=== PATIENT | male | born 1985 | race Caucasian/White ===

== ENCOUNTER 2020-12-16 19:56 | Emergency (ER) | payer MEDICAID ==
--- NOTE | 2020-12-16 21:19 | EDM.PDOC ---
ED HPI GENERAL MEDICAL PROBLEM - General Chief Complaint: Laceration Stated Complaint: SCREW IN LT FOOT Time Seen by Provider: 12/16/20 21:06 Source of Information: Reports: Patient History Limitations: Reports: No Limitations - History of Present Illness INITIAL COMMENTS - FREE TEXT/NARRATIVE: Aurelio is a 35-year-old male presenting to the ED with concerns that he has a screw in his left foot. Patient states that "he has had 3 shoulder surgeries and that the screw of his shoulder surgery fell out and was in the arch of his foot. He has been walking quite a bit and now the screw has moved to the ball between the second and third metatarsals is in pain and swelling. He has been walking some distance and the pain continues to worsen." I was asked to see the patient after he fired Carleen Horne CNP because he felt that she was not competent. Past Medical History HEENT History: Reports: Impaired Vision, Other (See Below) Other HEENT History: suppose to wear glasses Neurological History: Reports: Concussion, Head Trauma - Infectious Disease History Infectious Disease History: Reports: Chicken Pox - Past Surgical History Cardiovascular Surgical History: Reports: Other (See Below) Other Cardiovascular Surgeries/Procedures: aortic replacement? Musculoskeletal Surgical History: Reports: Shoulder Surgery ED ROS GENERAL - Review of Systems Review Of Systems: See Below Constitutional: Reports: No Symptoms Musculoskeletal: Reports: Foot Pain (Left foot pain between the distal second and third metatarsals. Pain with walking especially over great distances.) Skin: Reports: No Symptoms Neurological: Reports: No Symptoms ED EXAM, SKIN/RASH Exam: See Below Exam Limited By: No Limitations General Appearance: Alert, No Apparent Distress Extremities: Normal Range of Motion, Normal Capillary Refill, Other (Tenderness with palpation over the distal plantar foot between the second and third distal metatarsals. There is blistering over this area. Very poor hygiene of both feet. I do not palpate any significant abnormalities to suggest a foreign body. There is no evidence for puncture wound.) Neurological: Alert, Oriented, Normal Cognition, No Motor/Sensory Deficits Psychiatric: Anxious, Other (The patient has an odd affect as if he is under the influence of a mind altering substance.) Skin: Other (Blistering on the plantar surface of the foot including the distal pads of the second and third metatarsals.) Location, Skin: Lower Extremity, Left Characteristics: Bullous Associated features: Tenderness Course - Orders/Labs/Meds Orders: Active Orders 24 hr Category Date Time Status Foot 2V Lt [CR] Stat Exams 12/16/20 21:06 Ordered - Radiology Interpretation Free Text/Narrative:: I reviewed the three-view x-ray of the left foot demonstrating normal anatomy without evidence for any foreign body. - Re-Assessments/Exams Free Text/Narrative Re-Assessment/Exam: 12/16/20 21:31 I reviewed the images with the patient showing no foreign body in the foot. He is in disbelief of this. With nothing more to offer and the patient is discharged. Departure - Departure Time of Disposition: 21:35 Disposition: Home, Self-Care 01 Clinical Impression: Left foot pain Blister of plantar aspect of left foot Qualifiers: Encounter type: initial encounter Qualified Code(s): S90.822A - Blister (nonthermal), left foot, initial encounter - Discharge Information Instructions: Blisters, Adult, Foot Pain Referrals: PCP,None [Primary Care Provider] - Care Plan Goals: Your work-up today has failed to demonstrate any evidence of a screw or metallic foreign body being in your foot. Moreover, it is likely that your foot pain is due to continued wear on the skin over the second and third metatarsals likely due to poorly fitting shoes. This is also an area of repeated blistering. I would recommend better padding in the shoe to protect continue to wear on the bottom of your foot. - Problem List & Annotations (1) Blister of plantar aspect of left foot SNOMED Code(s): 853710280 Code(s): S90.822A - BLISTER (NONTHERMAL), LEFT FOOT, INITIAL ENCOUNTER Status: Acute Priority: Low Current Visit: Yes Qualifiers: Encounter type: initial encounter Qualified Code(s): S90.822A - Blister (nonthermal), left foot, initial encounter (2) Left foot pain SNOMED Code(s): 00833228 Code(s): M79.672 - PAIN IN LEFT FOOT Status: Acute Priority: Low Current Visit: Yes - Problem List Review Problem List Initiated/Reviewed/Updated: Yes - My Orders Last 24 Hours: My Active Orders 12/16/20 21:06 Foot 2V Lt [CR] Stat - Assessment/Plan Last 24 Hours: My Active Orders 12/16/20 21:06 Foot 2V Lt [CR] Stat
--- NOTE | 2020-12-18 10:17 | CR ---
Foot Comp Min 3V Lt CLINICAL HISTORY: Screw in foot, pain FINDINGS: There is no acute fracture or dislocation within the foot. No destructive changes are present. IMPRESSION: No acute bony process. No foreign body seen
== END 2020-12-16 21:42 | disposition home or self-care (01) ==
LOC: JP.ED 19:56
DX: S90.822A Blister (nonthermal), left foot, initial encounter (principal); W45.8XXA Other foreign body or object entering through skin, initial encounter
CPT/HCPCS: 73630-26-LT; 73630-LT; 99282; 99283-25